=== PATIENT | female | born 1980 | race Caucasian/White ===

== ENCOUNTER 2016-11-26 18:11 | Emergency (ER) | payer OTHER ==
--- NOTE | 2016-11-26 18:54 | RAD ---
11/26/2016 6:49 PM ANKLE-LEFT 3 VIEW History: Patient tripped and fell 2 nights ago. Edema and inability to weight-bear. Technique: 3 view Ankle Side:Left Comparison: None Findings: Bones: No fracture or dislocation. Joints: The ankle mortise is normally aligned. Joints:Remaining joints are unremarkable. Associated Findings: Large amount of lateral soft tissue swelling is present. Impression: 1. No fracture or dislocation.
[2016-11-26 20:50] LABS: ABSOLUTE NEUTROPHIL COUNT 9.1 K/mm3 (1.8-7.7); BASO % 0.3 % (0.2-1.0); EOS # 0.1 (0.0-0.5); EOS % 0.8 % (0.9-2.9); HEMATOCRIT 36.6 % (37.0-47.0); HEMOGLOBIN 11.9 gm/l (12.0-16.0); IMM NEUT% 0.3 % (0-1); LYMPH # 1.9 (1.0-4.8); LYMPH % 15.7 % (15-45); MEAN CELL VOLUME 86.7 fl (81.0-99.0); MEAN CORPUSCULAR HEMOGLOBIN 28.2 pg (27.0-31.0); MEAN CORPUSCULAR HGB CONC 32.5 g/dl (33.0-37.0); MEAN PLATELET VOLUME 9.6 fl (7.4-10.4); MONO # 0.8 (0.0-0.8); MONO % 6.6 % (4-12); NEUT % 76.3 % (43-75); PLATELET COUNT 344 K/mm3 (130-400); RED CELL DISTRIBUTION WIDTH 12.1 % (11.5-14.5)
[2016-11-26 21:09] LABS: ALB/GLOB RATIO 0.7 (>1.0); ALBUMIN 3.5 gm/dL (3.5-5.7); CALCIUM 9.2 mg/dL (8.6-10.3)
[2016-11-26] MEDS ORDERED: CLINDAMYCIN PHOSPHATE 600 MG/4 ML VIAL ONE (21:18)
[2016-11-26 21:19] LABS: C-REACTIVE PROTEIN 4.8 mg/dl (<1.0)
[2016-11-26] MEDS ORDERED: SODIUM CHLORIDE 0.9% 100 ML IV ONE (21:19)
[2016-11-26] MEDS ORDERED: LACTATED RINGERS 1,000 ML ONE (21:27)
[2016-11-26] MEDS ORDERED: ACETAMINOPHEN 325 MG TABLET ONE (22:39)
[2016-11-26] MEDS ORDERED: IBUPROFEN 600 MG TABLET ONE (22:39)
--- NOTE | 2016-11-27 08:10 | RAD ---
CHEST 2 VIEWS HISTORY: Cough and fever. Frontal and lateral chest radiographs dated 11/26/2016. COMPARISON: 02/05/2007 FINDINGS: FOCAL AIRSPACE OPACITY: No gross airspace consolidation. BRONCHOVASCULAR MARKINGS: Coarsened. PLEURAL EFFUSION: None. CARDIOMEDIASTINAL SILHOUETTE: Nonenlarged. PNEUMOTHORAX: None identified. OSSEOUS STRUCTURES: No grossly destructive lesions. UPPER ABDOMEN: Status post cholecystectomy. IMPRESSION: No gross airspace consolidation. Coarsened bronchovascular markings, which can be seen in the setting of bronchitis, atypical/viral infection, or central airways disease.
== END 2016-11-26 23:00 | disposition home or self-care (01) ==
LOC: ED 18:11
DX: L03.116 Cellulitis of left lower limb (principal); B96.89 Other specified bacterial agents as the cause of diseases classified elsewhere
CPT/HCPCS: 83605; 86141; 85025; 80053; 85651; 73610; 71020; 87804; 99284 ×2; 96365; A9270 ×2; J7120; J7050